=== PATIENT | male | born 1990 | race Caucasian/White ===

== ENCOUNTER 2020-07-31 16:51 | Inpatient (IN) | payer SELFPAY ==
[~2020-07-31] VITALS: Ht 172.7 cm; Wt 71.5 kg
[2020-07-31] MEDS ORDERED: ceFAZolin SODIUM 2 GM in IV DEXTROSE 5% 50 ML IV ONE (18:00)
[2020-07-31] MEDS ORDERED: IV DEXTROSE 5% 0 ML ONE (18:10)
[2020-07-31] MEDS ORDERED: ceFAZolin SODIUM 1 GM VIAL ONE ×3 (18:10→21:17)
[2020-07-31] MEDS ORDERED: VANCOMYCIN 1.75 GM in IV NORMAL SALINE 500ML 500 ML IV ONE (18:15)
[2020-07-31] MEDS ORDERED: IV NORMAL SALINE 500ML 500 ML ONE (18:17)
[2020-07-31] MEDS ORDERED: VANCOMYCIN 1 GM VIAL. ONE (18:17)
[2020-07-31 19:08] LABS: BASO # 0.1 x10^3/uL (0.0-0.2); BASO % 1 % (0-3); EOS # 0.3 x10^3/uL (0.0-0.7); EOS % 2 % (0-3); HEMATOCRIT 39.4 % (39.0-53.0); HEMOGLOBIN 12.8 g/dL (13.0-17.5); LYMPH # 1.8 x10^3/uL (1.0-4.8); LYMPH % 13 % (24-48); MEAN CORPUSCULAR HEMOGLOBIN 31 pg (25-35); MEAN CORPUSCULAR HGB CONC 33 g/dL (31-37); MEAN CORPUSCULAR VOLUME 94 fL (79-100); MONO # 1.4 x10^3/uL (0.0-1.1); MONO % 10 % (0-9); NEUT # 10.6 x10^3uL (1.8-7.7); NEUT % 75 % (31-73); PLATELET COUNT 255 x10^3/uL (140-400); RED BLOOD COUNT 4.19 x10^6/uL (4.30-5.70); RED CELL DISTRIBUTION WIDTH 14.4 % (11.5-14.5); WHITE BLOOD COUNT 14.2 x10^3/uL (4.0-11.0)
[2020-07-31 19:13] LABS: CALCIUM 8.5 mg/dL (8.5-10.1); CREATININE 0.9 mg/dL (0.7-1.3); GFR 99.1; POTASSIUM 3.8 mmol/L (3.5-5.1)
[2020-07-31 19:19] LABS: ALBUMIN/GLOBULIN RATIO 0.8 (1.0-1.7); TOTAL BILIRUBIN 0.3 mg/dL (0.2-1.0)
--- NOTE | 2020-07-31 19:54 | PHYS DOC ---
Past History Past Medical History: No Pertinent History (DARRYL HARRELL APRN) Past Surgical History: No Surgical History (DARRYL HARRELL APRN) Alcohol Use: None Drug Use: Marijuana (DARRYL HARRELL APRN) Adult General Chief Complaint Chief Complaint: CELLULITIS HPI HPI Patient is a 30-year-old male presents emergency department complaining of an infection of his right upper arm after getting a tattoo on July 182020. Patient states approximately week ago he noticed infection starting to pop up the looked like pimples, they become more red and larger as the days went on. States that he tried to pop 1 to drain it but he was unable to express any purulence. Patient states that he seen in urgent care yesterday and was started on Bactrim DS, states he has taken 1 tablet last night and one this morning, was told to come to the emergency department if he did not feel his infection was getting better. Patient states that he thinks it was becoming worse as he is now unable to fully extend his right upper extremity without pain which she rates a 7/10 on a 1-10 pain scale, otherwise at rest he rates his pain a 3/10 on a 1-10 pain scale. Patient denies taking any prescription medications at home other than the Bactrim DS he received yesterday, patient states he has no health history, no surgical history, no allergies to medications, no one else living in his home is having the same symptoms as he. Patient states that he does not get abscess infections. Patient reports he is unsure if he has had a tetanus immunization in the past 5 years. (DARRYL HARRELL APRN) Review of Systems Review of Systems 14 body systems of review of systems have been reviewed. See HPI for pertinent positives and negative responses, otherwise all other systems are negative, nonpertinent or noncontributory. (DARRYL HARRELL APRN) Current Medications Current Medications Current Medications Medications (Trade) Dose Ordered Sig/Sky Start Time Stop Time Status Last Admin Dose Admin Cefazolin Sodium (Ancef) 1 gm STK-MED ONCE 07/31/20 18:16 07/31/20 18:17 DC Cefazolin Sodium 2 gm/Dextrose 50 ml @ 100 mls/hr 1X ONCE 07/31/20 18:00 07/31/20 18:29 DC Dextrose 0 ml @ As Directed STK-MED ONCE 07/31/20 18:10 07/31/20 18:11 DC Sodium Chloride 500 ml @ As Directed STK-MED ONCE 07/31/20 18:17 07/31/20 18:17 DC Vancomycin HCl (Vanco Per Pharmacy) 1 each PRN DAILY PRN 07/31/20 18:00 Vancomycin HCl (Vancomycin) 1 gm STK-MED ONCE 07/31/20 18:17 07/31/20 18:18 DC Vancomycin HCl 1.75 gm/Sodium Chloride 500 ml @ 250 mls/hr 1X ONCE 07/31/20 18:15 07/31/20 20:14 (DARRYL HARRELL APRN) Allergies Allergies Allergies Coded Allergies Type Severity Reaction Last Updated Verified No Known Drug Allergies 07/04/14 No (DARRYL HARRELL APRN) Physical Exam Physical Exam Constitutional: Well developed, well nourished, no acute distress, non-toxic a ppearance. 30-year-old male in no apparent distress. HENT: Normocephalic, atraumatic, bilateral external ears normal, oropharynx moist, no oral exudates, nose normal. Oropharynx moist, no infectious process appreciated, bilateral TMs within normal limits, no lymphadenopathy of the head or neck. Eyes: PERRLA, EOMI, conjunctiva normal, no discharge. Neck: Normal range of motion, no tenderness, supple, no stridor. No meningismus signs, no nuchal rigidity, no C-spine tenderness appreciated. Cardiovascular:Heart rate regular rhythm, heart sounds S1-S2 to auscultation. Lungs & Thorax: Bilateral breath sounds clear to auscultation all lung crowder, no adventitious lung sounds appreciated. Abdomen: Bowel sounds normal, soft, no tenderness, no masses, no pulsatile masses. Skin: Warm, dry, no erythema, no rash. See extremity note. Back: No tenderness to palpation along midline bony spinal prominences or adjacent structures of the back. Extremities: No tenderness, no cyanosis, no clubbing, ROM intact, no edema. Except for right upper extremity, patient has 9 abscesses/cellulitis type infection area on right upper extremity, nonfluctuant, 6 on forearm with the largest presenting with a 1 cm x 5 cm open lesion without purulent drainage, patient states he attempted to "pop "the abscess thinking it was a pimple and it would drain. 1 abscess/cellulitic infection directly on AC, 2 abscesses on upper right arm, no drainage appreciated, red lymphangitis streaking proximally, no lymphadenopathy of the right axilla appreciated. Distal cap refill less than 2 seconds, 2+ radial pulse. Patient unable to fully extend right upper extremity at elbow joint related to pain. Pain with passive range of motion at elbow joint, no pain at wrist joint or joints of the hand or fingers. No pain at the shoulder joint with range of motion. Neurologic: Alert and oriented X 3, normal motor function, normal sensory function, no focal deficits noted. Psychologic: Affect normal, judgement normal, mood normal. (DARRYL HARRELL APRN) Current Patient Data Vital Signs Vital Signs Date Time Temp Pulse Resp B/P (MAP) Pulse Ox O2 Delivery O2 Flow Rate FiO2 07/31/20 17:02 98.7 14 113/79 (90) 97 Room Air Lab Results Laboratory Tests Test 07/31/20 18:50 White Blood Count 14.2 x10^3/uL Red Blood Count 4.19 x10^6/uL Hemoglobin 12.8 g/dL Hematocrit 39.4 % Mean Corpuscular Volume 94 fL Mean Corpuscular Hemoglobin 31 pg Mean Corpuscular Hemoglobin Concent 33 g/dL Red Cell Distribution Width 14.4 % Platelet Count 255 x10^3/uL Neutrophils (%) (Auto) 75 % Lymphocytes (%) (Auto) 13 % Monocytes (%) (Auto) 10 % Eosinophils (%) (Auto) 2 % Basophils (%) (Auto) 1 % Neutrophils # (Auto) 10.6 x10^3uL Lymphocytes # (Auto) 1.8 x10^3/uL Monocytes # (Auto) 1.4 x10^3/uL Eosinophils # (Auto) 0.3 x10^3/uL Basophils # (Auto) 0.1 x10^3/uL Sodium Level 137 mmol/L Potassium Level 3.8 mmol/L Chloride Level 104 mmol/L Carbon Dioxide Level 24 mmol/L Anion Gap 9 Blood Urea Nitrogen 9 mg/dL Creatinine 0.9 mg/dL Estimated GFR (Cockcroft-Gault) 99.1 BUN/Creatinine Ratio 10 Glucose Level 104 mg/dL Lactic Acid Level 1.2 mmol/L Calcium Level 8.5 mg/dL Total Bilirubin 0.3 mg/dL Aspartate Amino Transf (AST/SGOT) 48 U/L Alanine Aminotransferase (ALT/SGPT) 107 U/L Alkaline Phosphatase 83 U/L Total Protein 7.0 g/dL Albumin 3.0 g/dL Albumin/Globulin Ratio 0.8 Current Medications Medications (Trade) Dose Ordered Sig/Sky Route PRN Reason Start Time Stop Time Status Last Admin Dose Admin Cefazolin Sodium 2 gm/Dextrose 50 ml @ 100 mls/hr 1X ONCE IV 07/31/20 18:00 07/31/20 18:29 DC Vancomycin HCl (Vanco Per Pharmacy) 1 each PRN DAILY PRN MC SEE COMMENTS 07/31/20 18:00 Vancomycin HCl 1.75 gm/Sodium Chloride 500 ml @ 250 mls/hr 1X ONCE IV 07/31/20 18:15 07/31/20 20:14 Cefazolin Sodium (Ancef) 1 gm STK-MED ONCE .ROUTE 07/31/20 18:10 07/31/20 18:11 DC Dextrose 0 ml @ As Directed STK-MED ONCE .ROUTE 07/31/20 18:10 07/31/20 18:11 DC Cefazolin Sodium (Ancef) 1 gm STK-MED ONCE .ROUTE 07/31/20 18:16 07/31/20 18:17 DC Sodium Chloride 500 ml @ As Directed STK-MED ONCE .ROUTE 07/31/20 18:17 07/31/20 18:17 DC Vancomycin HCl (Vancomycin) 1 gm STK-MED ONCE .ROUTE 07/31/20 18:17 07/31/20 18:18 DC Laboratory Tests Test 07/31/20 18:50 White Blood Count 14.2 x10^3/uL (4.0-11.0) H Red Blood Count 4.19 x10^6/uL (4.30-5.70) L Hemoglobin 12.8 g/dL (13.0-17.5) L Hematocrit 39.4 % (39.0-53.0) Mean Corpuscular Volume 94 fL (79-100) Mean Corpuscular Hemoglobin 31 pg (25-35) Mean Corpuscular Hemoglobin Concent 33 g/dL (31-37) Red Cell Distribution Width 14.4 % (11.5-14.5) Platelet Count 255 x10^3/uL (140-400) Neutrophils (%) (Auto) 75 % (31-73) H Lymphocytes (%) (Auto) 13 % (24-48) L Monocytes (%) (Auto) 10 % (0-9) H Eosinophils (%) (Auto) 2 % (0-3) Basophils (%) (Auto) 1 % (0-3) Neutrophils # (Auto) 10.6 x10^3uL (1.8-7.7) H Lymphocytes # (Auto) 1.8 x10^3/uL (1.0-4.8) Monocytes # (Auto) 1.4 x10^3/uL (0.0-1.1) H Eosinophils # (Auto) 0.3 x10^3/uL (0.0-0.7) Basophils # (Auto) 0.1 x10^3/uL (0.0-0.2) Sodium Level 137 mmol/L (136-145) Potassium Level 3.8 mmol/L (3.5-5.1) Chloride Level 104 mmol/L (98-107) Carbon Dioxide Level 24 mmol/L (21-32) Anion Gap 9 (6-14) Blood Urea Nitrogen 9 mg/dL (8-26) Creatinine 0.9 mg/dL (0.7-1.3) Estimated GFR (Cockcroft-Gault) 99.1 BUN/Creatinine Ratio 10 (6-20) Glucose Level 104 mg/dL (70-99) H Lactic Acid Level 1.2 mmol/L (0.4-2.0) Calcium Level 8.5 mg/dL (8.5-10.1) Total Bilirubin 0.3 mg/dL (0.2-1.0) Aspartate Amino Transferase (AST) 48 U/L (15-37) H Alanine Aminotransferase (ALT) 107 U/L (16-63) H Alkaline Phosphatase 83 U/L (46-116) Total Protein 7.0 g/dL (6.4-8.2) Albumin 3.0 g/dL (3.4-5.0) L Albumin/Globulin Ratio 0.8 (1.0-1.7) L (DARRYL HARRELL APRN) EKG EKG [] (DARRYL HARRELL APRN) Radiology/Procedures Radiology/Procedures [] (DARRYL HARRELL APRN) Heart Score C/O Chest Pain: No Risk Factors: Risk Factors: DM, Current or recent (<one month) smoker, HTN, HLP, family history of CAD, obesity. Risk Scores: Risk Factors: DM, Current or recent (<one month) smoker, HTN, HLP, family history of CAD, obesity. (DARRYL HARRELL APRN) Course & Med Decision Making Course & Med Decision Making Pertinent Labs and Imaging studies reviewed. (See chart for details) 30-year-old male, vital signs reviewed, presents to the emergency department concerning for failed antibiotic regimen for right upper extremity cellulitis. Patient has started taking Bactrim DS yesterday, taken 2 doses and reports to the ER today reporting he feels that his arm is not getting any better. Physical examination showed 9 abscess/cellulitic type infections to the right upper extremity, 1 lesion measuring 1 cm x 1/2 cm open at central punctum area of abscess was nondraining, a culture was taken and sent to lab. ED planning included sending culture of open wound, out,health management consultant,camp, lactic acid, blood cultures x2. Will start with 2 g Ancef IV, pharmacy dosed vancomycin IV, will bring patient's tetanus status up-to-date today in the emergency department, will discuss with patient recommendation of admission to hospital for IV antibiotics and reevaluation tomorrow. Discussed with patient recommendation of admission to the hospital for IV antibiotics and close monitoring of infectious process of his right upper extremity infections. Also discussed possible I&D of one of his abscesses, patient refused I&D at this time. Patient states he wants to try IV antibiotics first and is willing to have I&D if IV antibiotic regimen is not working adequately. Discussed with patient that he may need surgical consult and should be admitted to [facility], patient refused this and he does not want to be admitted or be a patient of [facility], patient states that he is willing to come into the hospital at [place] for IV antibiotic therapy, and will consider recommendations by inpatient doctor Hilario after reev aluation tomorrow. Discussed case with Dr. Rich who agreed to accept patient as admission to the medical surgical unit for the diagnosis of right upper extremity cellulitis with abscess and lymphangitis with the information he received from me. Discussed admission to MedSurg unit to [facility] under the care of Dr. Rich with patient who was amenable to this plan and accepts admission plan. Patient was admitted to the medical surgical unit, Dr. Rich has assumed care at this time. (DARRYL HARRELL APRN) Course & Med Decision Making I oversaw care of patient while in ER and discussed case with CONVENTION PLANNER. I agree to note and plan of care as stated. Electronically signed, Lydia Zelaya DO (LYDIA ZELAYA DO) Radha Disclaimer Dragon Disclaimer This electronic medical record was generated, in whole or in part, using a voice recognition dictation system. (DARRYL HARRELL APRN) Departure Departure: Impression: Primary Impression: Cellulitis of right upper extremity Additional Impressions: Acute lymphangitis of right upper extremity Abscess of right upper arm and forearm Disposition: 09 ADMITTED INPT THIS HOSP (Admit to the medical surgical unit to Dr. Rich diagnosis cellulitis of right upper extremity with abscess and lymphangitis) Admitting Physician: Artis Rich (DARRYL HARRELL APRN) Admitting Physician: Artis Rich (LYDIA ZELAYA DO) Condition: STABLE Referrals: PCP,NO (PCP) Problem Qualifiers DARRYL HARRELL APRN Jul 31, 2020 19:54 LYDIA ZELAYA DO Aug 01, 2020 20:03
[2020-07-31] MEDS ORDERED: DIPH,PERTUSS(ACELL),TET VAC/PF 0.5 ML SYRINGE. VAX IM ONE (20:45)
[2020-07-31] MEDS ORDERED: IV DEXTROSE 5% 50 ML ONE (21:17)
[2020-07-31] MEDS: VANCOMYCIN PER PHARMACY MC PRN (21:34)
[2020-07-31] MEDS ORDERED: NICOTINE 21MG PATCH. TD PRN (21:45)
[2020-07-31 21:51] VITALS: BP 128/66
[2020-07-31] MEDS ORDERED: SULF1TAB24 PO (23:59)
[2020-08-01 06:35] VITALS: BP 119/74
[2020-08-01] MEDS ORDERED: VANCOMYCIN 1 GM in IV NORMAL SALINE 250ML 250 ML IV SCH ×2 (07:00→15:00)
[2020-08-01] MEDS ORDERED: LACTOBACILLUS RHAMNOSUS GG 1 CAPSULE. PO SCH (09:00)
[2020-08-01 11:00] VITALS: BP 114/70
--- NOTE | 2020-08-01 14:15 | SSS ---
ADMIT DATE: HISTORY OF PRESENT ILLNESS: The patient is a 30-year-old male patient, who presented to Emergency Department complaining of infection of his right upper arm after getting a tattoo on 07/18/2020. He stated approximately a week ago, he noticed infection starting to pop up that looked like pimples that became more red and larger as the days went by. He stated that he has tried to open one of them to drain it, but he was unable to express any purulence. He stated that he was seen in the urgent clinic the day before yesterday and was started on Bactrim DS, he took 1 tablet the night before and on the morning of admission, I was told to come to the Emergency Department if he does not feel his infection was getting any better. He stated that he thinks it was becoming worse as he is now unable to fully extend his right upper extremity without pain, which he rates about 7/10 in severity. Otherwise, at rest, he rates the pain as 3/10. The patient denied taking any prescription medication at home other than the Bactrim-DS. He was extensively investigated in the Emergency Room and was found to have leukocytosis with a white cell count of 14,200. His chemistry was unremarkable except for slightly elevated AST, ALT and the patient was admitted with right upper extremity cellulitis, lymphangitis and multiple abscesses and was started on IV vancomycin. PAST MEDICAL HISTORY: Unremarkable. 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 He also had tonsillectomy and adenoidectomy. ALLERGIES: He has no known drug allergies. MEDICATIONS: He is currently on no medication. FAMILY HISTORY: He has one sister older and healthy. His father is alive at age of 55, mother is alive at age of 50. She has a TIA with possible persistent foramen ovale versus ASD. She apparently is on oral anticoagulant. SOCIAL HISTORY: He is single, has one son. Smokes 1/2 to 1 pack a day, does not drink alcohol or use recreational drugs. He works fixing heavy equipment. PHYSICAL EXAMINATION: GENERAL: On arrival to the Emergency Room, he looked well and was clearly in no apparent respiratory distress. No pallor, jaundice, cyanosis or thyromegaly. No jugular venous distension. No limb edema. VITAL SIGNS: His heart rate was 68, blood pressure 114/70, temperature was 98.8, respiratory rate was 16, and oxygen saturation was 99%. HEAD, EYES, EARS, NOSE AND THROAT: Normocephalic, atraumatic. NECK: Supple. HEART: Showed normal first and second heart sounds. No gallop, rub or murmur. CHEST: Clear to auscultation. No crepitation or rhonchi. ABDOMEN: Scaphoid, soft, nontender. NEUROLOGIC: He is awake, alert, responding appropriately. All cranial nerves intact. EXTREMITIES: He moves extremities without difficulty, ambulates without assistance or assistive devices. Examination of his right upper extremity showed that he has multiple at least 3 abscesses and smaller abscess on the outer aspect of the right forearm with intervening cellulitis and lymphangitis. LABORATORY DATA: His lab work showed a white cell count 14,200; hemoglobin 13; hematocrit 39; MCV 94 and platelet count 255,000. His serum sodium was 137, potassium 3.8, chloride 104, bicarbonate 24, anion gap of 9, BUN of 9, creatinine 0.9, estimated GFR was 99 mL per minute. His glucose 104, calcium was 8.5. Total bilirubin and alkaline phosphatase normal. AST, ALT were slightly elevated. Total protein 7, albumin was 3. ASSESSMENT AND PLAN: The patient will be transferred to [facility] to continue with IV antibiotic and to consult the surgical team for incision and drainage of these multiple abscesses. JEOVANNY WU MD DR: LORENA/vince JOB#: [id number] / [id number]
[2020-08-01] MEDS: VANCOMYCIN PER PHARMACY MC PRN (14:52)
[2020-08-01 15:00] VITALS: BP 128/80
== END 2020-08-01 19:02 | disposition short-term general hospital (02) | DRG 603 ==
LOC: ER 16:51 → ICU 20:00
PROVIDERS: ADMIT Internal Medicine; ATTEND Internal Medicine
DX: L03.113 Cellulitis of right upper limb (principal); L02.413 Cutaneous abscess of right upper limb; F17.210 Nicotine dependence, cigarettes, uncomplicated
CPT/HCPCS: 36415; 80053; 83605; 85025; 87040; 87070; 90471; 90715; 96365; 96366; 96368; 99406; J0690; J3010; J3370; J7040; J7050; 99285-25